=== PATIENT | male | born 1990 ===

== ENCOUNTER 2017-06-13 11:33 | Emergency (ER) | payer OTHER ==
--- NOTE | 2017-06-13 14:13 | UC ---
Skin Complaint HPI - HPI Summary HPI Summary: left thigh has a circular erythemic area patient is concerned he may have scratched a tick of his leg several days ago. Patient is additionally worried as he is leaving for [place] in 3 days and is here today seeking treatment for erythema migranes - History of Current Complaint Chief Complaint: UCSkin Time Seen by Provider: 06/13/17 14:02 Stated Complaint: TICK BITE Hx Obtained From: Patient Onset/Duration: Sudden Onset, Lasting Days, Still Present Skin Exposure Onset/Duration: Days Ago - up to 1 week Timing: Constant Onset Severity: Mild Location: Discrete Character: Redness Aggravating: Nothing Alleviating: Nothing Associated Signs & Symptoms: Positive: Negative Related History: Possible Reaction to: Insect - Allergy/Home Medications Allergies/Adverse Reactions: Allergies Allergy/AdvReac Type Severity Reaction Status Date / Time No Known Allergies Allergy Verified 06/13/17 13:01 Review of Systems Constitutional: Negative Skin: Rash - 10 cm circular red rash on left thigh Eyes: Negative ENT: Negative Respiratory: Negative Cardiovascular: Negative Gastrointestinal: Negative Genitourinary: Negative Motor: Negative Neurovascular: Negative Musculoskeletal: Negative Neurological: Negative Psychological: Negative All Other Systems Reviewed And Are Negative: Yes PMH/Surg Hx/FS Hx/Imm Hx Previously Healthy: Yes - Surgical History Surgical History: None - Family History Known Family History: Positive: None - Social History Occupation: Employed Full-time Lives: With Family Alcohol Use: Occasionally Substance Use Type: None Smoking Status (MU): Never Smoked Tobacco Physical Exam Triage Information Reviewed: Yes Appearance: Well-Appearing, No Pain Distress, Well-Nourished Vital Signs: Initial Vital Signs Temp 98.8 F 06/13/17 12:56 Pulse 84 06/13/17 12:56 Resp 18 06/13/17 12:56 BP 149/85 06/13/17 12:56 Pulse Ox 100 06/13/17 12:56 Vital Signs Reviewed: Yes Eye Exam: Normal Eyes: Positive: Conjunctiva Clear ENT Exam: Normal ENT: Positive: Normal ENT inspection, Hearing grossly normal. Negative: Nasal congestion, Nasal drainage, Trismus, Muffled/hoarse voice Dental Exam: Normal Neck exam: Normal Neck: Positive: Supple, Nontender, No Lymphadenopathy Respiratory Exam: Normal Respiratory: Positive: Chest non-tender, No respiratory distress, No accessory muscle use Cardiovascular Exam: Normal Cardiovascular: Positive: RRR, No Murmur, Pulses Normal, Brisk Capillary Refill Abdominal Exam: Normal Musculoskeletal Exam: Normal Musculoskeletal: Positive: Strength Intact, ROM Intact, No Edema Neurological Exam: Normal Neurological: Positive: Alert, Muscle Tone Normal Psychological Exam: Normal Skin Exam: Other Skin: Positive: Other - red circular rash as described Course/Dx - Course Course Of Treatment: Doxycycline for 3 weeks observe for continue s/s of Lyme, use sun protection follow with PCP - Differential Diagnoses - Skin Complaint Differential Diagnoses: Abscess, Cellulitis, Impetigo, Local Allergic Reaction, Tick Born Illness, Viral Exanthem - Diagnoses Provider Diagnoses: Erythema Migranes Discharge - Discharge Plan Condition: Stable Disposition: HOME Prescriptions: DOXYcycline CAP(*) [DOXYcycline 100MG CAP(*)] 100 mg PO BID #[id number] cap Patient Education Materials: Doxylamine (By mouth), Lyme Disease (ED) Referrals: [facility] [place] [facility] [Outside] - If Needed
== END 2017-06-13 14:19 | disposition home or self-care (01) ==
LOC: UCEAST 11:33
DX: A26.0 Cutaneous erysipeloid (principal)
CPT/HCPCS: 99202; G0463